=== PATIENT | female | born 2000 | race Two or more races ===

== ENCOUNTER 2023-11-14 06:35 | Inpatient (IN) | payer OTHER ==
[2023-11-14] MEDS: ELECTROLYTE-148 SOLN 1,000 ML IV SCH ×2 (08:05→17:00)
[2023-11-14 08:43] VITALS: BMI 29.3
[2023-11-14] MEDS ORDERED: OXYTOCIN 30 UNITS in 0.9% NS 30 UNIT/500 ML INFUS.BAG IVPB ONE (09:29)
[2023-11-14] MEDS: OXYTOCIN 30 UNITS in 0.9% NS 30 UNIT/500 ML INFUS.BAG IVPB SCH (09:45)
[2023-11-14] MEDS ORDERED: CLINDAMYCIN 900 MG PREMIX IVPB 900 MG/50 ML BAG IVPB ONE (10:07)
[2023-11-14] MEDS: CLINDAMYCIN 900 MG PREMIX IVPB 900 MG/50 ML BAG IVPB SCH (10:15)
[2023-11-14 10:19] LABS: BASO % 0.2 % (0-2.0); EOS % 0.1 % (0-4.5); HEMATOCRIT 30.9 % (32.4-45.2); HEMOGLOBIN 9.8 GM/dL (10.7-15.3); LYMPH % 18.5 % (8-40); MCH 26.1 pg (25.7-33.7); MCHC 31.9 g/dl (32.0-36.0); MEAN CELL VOLUME 81.8 fl (80-96); MEAN PLT VOLUME 9.2 fl (7.5-11.1); MONO % 6.5 % (3.8-10.2); NEUT % 74.7 % (42.8-82.8); PLATELET COUNT 189 10^3/uL (134-434); RBC 3.77 M/mm3 (3.60-5.2); RDW 15.9 % (11.6-15.6); WHITE BLOOD COUNT 10.8 K/mm3 (4.0-10.0)
[2023-11-14 10:31] LABS: INR 1.02 (0.83-1.09); PROTHROMBIN TIME (PATIENT) 11.8 SEC (9.7-13.0)
[2023-11-14 10:34] LABS: ACTIVATED PTT 23.5 SECONDS (25.2-36.5)
[2023-11-14 10:42] LABS: POTASSIUM 3.9 mmol/L (3.5-5.1)
[2023-11-14 10:45] LABS: BLOOD UREA NITROGEN 6.9 mg/dL (7-18); CALCIUM 8.5 mg/dL (8.5-10.1)
[2023-11-14 10:48] LABS: CREATININE 0.5 mg/dL (0.55-1.3)
[2023-11-14 11:38] LABS: HIV INTERPRETATION NEGATIVE (NEGATIVE)
[2023-11-14] MEDS: CITRIC ACID/SODIUM CITRATE 30 ML UNIT-DOSE CUP PO ONE (17:00)
[2023-11-14] MEDS ORDERED: ONDANSETRON 4 MG/2 ML VIAL IVPUSH PRN (17:24)
[2023-11-14] MEDS ORDERED: morphine SULFATE/PF 1 MG/2 ML (2cc Syringe - QUVA) ONE (17:34)
[2023-11-14] MEDS ORDERED: FENTANYL CITRATE/PF 50 MCG/ML VIAL ONE (17:34)
[2023-11-14] MEDS ORDERED: CLINDAMYCIN PHOSPHATE 600 MG/4 ML VIAL ONE (17:58)
[2023-11-14] MEDS ORDERED: ONDANSETRON 4 MG/2 ML VIAL ONE (17:58)
[2023-11-14] MEDS ORDERED: OXYTOCIN 10 UNITS/ML VIAL ONE (17:58)
[2023-11-14] MEDS ORDERED: METHYLERGONOVINE MALEATE 0.2 MG/1 ML AMP IM PRN (18:48)
[2023-11-14] MEDS ORDERED: OXYTOCIN 20 UNITS in 0.9% NS 20 UNIT/1,000 ML INFUS.BAG IV ONE (21:00)
[2023-11-14] MEDS: OXYTOCIN 20 UNITS in 0.9% NS 20 UNIT/1,000 ML INFUS.BAG IV SCH (21:00)
[2023-11-14] MEDS: IBUPROFEN 800 MG/8 ML IJ IVPB PRN (22:00)
[2023-11-15] MEDS: ACETAMINOPHEN 1000 MG/100 ML BAG IVPB PRN (06:20)
[2023-11-15] MEDS ORDERED: oxyCODONE HCL 5 MG TABLET PO PRN (06:48)
[2023-11-15 07:58] LABS: BASO % 0.3 % (0-2.0); HEMOGLOBIN 8.9 GM/dL (10.7-15.3); LYMPH % 12.3 % (8-40); MCH 26.3 pg (25.7-33.7); MEAN CELL VOLUME 82.3 fl (80-96); MEAN PLT VOLUME 9.2 fl (7.5-11.1); MONO % 6.6 % (3.8-10.2); NEUT % 80.8 % (42.8-82.8); PLATELET COUNT 162 10^3/uL (134-434); RDW 15.9 % (11.6-15.6); WHITE BLOOD COUNT 14.6 K/mm3 (4.0-10.0)
[2023-11-15] MEDS: FERROUS SO4 325 MG TABLET (FP) PO SCH (10:34)
[2023-11-15] MEDS: PRENATAL VITAMINS W/ FOLIC ACID TABLET (FP) PO SCH (10:34)
[2023-11-15] MEDS: ACETAMINOPHEN 325 MG TABLET (FP) PO PRN (10:40)
[2023-11-15] MEDS: SIMETHICONE 80 MG TAB.CHEW (FP) PO PRN (18:27)
[2023-11-15] MEDS: IBUPROFEN 600 MG TABLET (FP) PO PRN (18:27)
[2023-11-15] MEDS ORDERED: BISACODYL 10 MG SUPP.RECT RC PRN (18:48)
[2023-11-16] MEDS: SENNOSIDES/DOCUSATE COMBO (SENNA PLUS) TABLET (UD) PO PRN (20:55)
[2023-11-17] MEDS ORDERED: DEXMEDETOMIDINE HCL 200 MCG/2 ML IVPB ONE (08:00)
[2023-11-17] MEDS: oxyCODONE HCL 5 MG TABLET PO PRN (13:17)
[2023-11-18 10:01] VITALS: BP 133/64; PULSE 83; RESP 20; TEMP 98
== END 2023-11-18 13:50 | disposition home or self-care (01) | DRG 540 ==
LOC: JLDR 06:35 → J3W 21:42
PROVIDERS: ADMIT Obstetrics & Gynecology; ATTEND Obstetrics & Gynecology
PROC: 10D00Z1 Extraction of Products of Conception, Low, Open Approach (ICD-10-PCS; principal; 2023-11-14)
DX: O76 Abnormality in fetal heart rate and rhythm complicating labor and delivery (principal); O62.0 Primary inadequate contractions; O48.0 Post-term pregnancy; Z3A.41 41 weeks gestation of pregnancy; Z37.0 Single live birth
CPT/HCPCS: 36415; 80048; 82962; 85025; 85610; 85730; 86780; 86850; 86900; 86901; 87389; 88307-TC; J0131